=== PATIENT | male | born 1980 | race Two or more races ===

== ENCOUNTER → 2020-09-02 | Outpatient (CLI) | payer OTHER | END | disposition home or self-care (01) | LOC: CFH 06:50 | PROVIDERS: ATTEND Nurse Practitioner | DX: R94.5 Abnormal results of liver function studies (principal) | CPT/HCPCS: 76700 ==

== ENCOUNTER 2021-05-23 18:20 | Emergency (ER) | payer OTHER ==
[~2021-05-23] VITALS: Ht 165.1 cm; Wt 88.3 kg
--- NOTE | 2021-05-23 18:44 | NUR ---
ASSUMED CARE OF PT. HE C/O ABD PAIN, DIZZINESS, FATIGUED AND DEHYDRATED. REPORTS THIS HAS BEEN GOING ON FOR ABOUT AN HOUR. PT HOOKED TO MONITOR.
--- NOTE | 2021-05-23 18:56 | NUR ---
Report recieved from Paige CARRIZALES
--- NOTE | 2021-05-23 18:57 | NUR ---
[facility] REPORT GIVEN TO ANGELES. PT VSS, ALERT AND ORIENTED. NADN.
[2021-05-23] MEDS ORDERED: ONDANSETRON 2MG/ML, 2ML IVPush ONE (19:00)
[2021-05-23] MEDS: SODIUM CHLORIDE 0.9% 1,000 ML IV SCH ×2 (19:20→20:38)
[2021-05-23] MEDS ORDERED: ONDANSETRON 2MG/ML, 2ML ONE (19:50)
[2021-05-23 19:52] LABS: BASOPHILS % (AUTO) 0 % (0-1); EOSINOPHILS % (AUTO) 1 % (1-7); LYMPHOCYTES % (AUTO) 29 % (22-44); MEAN CORPUSCULAR HEMOGLOBIN 31.1 pg (27.5-34.5); MEAN CORPUSCULAR HGB CONC 34.6 g/dL (33.2-36.2); MEAN PLATELET VOLUME 8.6 fL (7.4-10.4); MONOCYTES % (AUTO) 4 % (2-9); NEUTROPHILS % (AUTO) 65 % (42-75); PLATELET COUNT 188 x10^3/uL (130-400); RED BLOOD COUNT 5.17 x10^6/uL (4.38-5.82)
--- NOTE | 2021-05-23 19:54 | NUR ---
pt laying in bed, family at bedside, all needs in reach, call light in reach, NAD
[2021-05-23 19:55] LABS: ALANINE AMINOTRANSFERASE 37 U/L (12-78); ALBUMIN 4.3 g/dL (3.4-5.0); ANION GAP 4 mmol/L (5-15); CALCIUM 8.8 mg/dL (8.5-10.1); CHLORIDE 108 mmol/L (98-107); CREATININE 0.82 mg/dL (0.7-1.3)
[2021-05-23 19:58] LABS: ALKALINE PHOSPHATASE 79 U/L (45-117); BILIRUBIN,TOTAL 0.8 mg/dL (0.2-1.0); CREATINE KINASE, TOTAL 269 U/L (39-308); TOTAL PROTEIN 8.5 g/dL (6.4-8.2)
[2021-05-23 19:59] LABS: MICROSCOPIC NOT IND
[2021-05-23 21:54] VITALS: BP 142/101
[2021-05-23] MEDS ORDERED: OMNIPAQUE 350 MG/ML, 100ML BOTTLE ONE (22:31)
== END 2021-05-23 21:56 | disposition home or self-care (01) ==
LOC: ED 21:00
DX: E86.0 Dehydration (principal); R11.2 Nausea with vomiting, unspecified; E86.9 Volume depletion, unspecified; L55.0 Sunburn of first degree; R42 Dizziness and giddiness
CPT/HCPCS: 36415; 74177; 80053; 81003; 82550; 85025; 93005; 96361; 96374; 99285; J2405; J7030; Q9967